=== PATIENT | male | born 1985 | race African-American/Black ===

== ENCOUNTER 2020-01-12 18:11 | Emergency (ER) | payer SELFPAY ==
[2020-01-12] MEDS ORDERED: IPRATROPIUM/ALBUTEROL 0.5-2.5 MG/3 ML AMPUL NEB ONE (18:51)
--- NOTE | 2020-01-12 18:53 | ER Document Report ---
ED Respiratory Problem - General Chief Complaint: Shortness Of Breath Stated Complaint: SHORTNESS OF BREATH Time Seen by Provider: 01/12/20 18:28 Primary Care Provider: [facility] [Provider Group] - Follow up as needed [facility] [Provider Group] - Follow up as needed Mode of Arrival: Ambulatory Information source: Patient Notes: Patient reports having an episode of shortness of breath after smoking marijuana blunt. Patient states that he has had increased stress as his brother yesterday. Patient denies any cough or cold symptoms. Patient denies any chest pain. Patient denies any fever. Patient does report a previous history of asthma. TRAVEL OUTSIDE OF THE [place] IN LAST 30 DAYS: No - HPI Patient complains to provider of: Short of breath. No: Chest pain, Cough Onset: This evening Quality of pain: No pain Context: Smoker Associated symptoms: Anxiety, Short of breath. denies: Congestion, Cough, Fever, Wheezing Similar symptoms previously: No Recently seen / treated by doctor: No Past Medical History - General Information source: Patient - Social History Smoking Status: Current Every Day Smoker Frequency of alcohol use: Occasional Drug Abuse: Marijuana Family History: Reviewed & Not Pertinent Pulmonary Medical History: Reports: Hx Asthma - as a child Surgical Hx: Negative - Immunizations Hx Diphtheria, Pertussis, Tetanus Vaccination: Yes Review of Systems - Review of Systems Constitutional: No symptoms reported. denies: Fever EENT: No symptoms reported Cardiovascular: No symptoms reported. denies: Chest pain Respiratory: Short of breath. denies: Cough Gastrointestinal: No symptoms reported. denies: Nausea, Vomiting Genitourinary: No symptoms reported Male Genitourinary: No symptoms reported Musculoskeletal: No symptoms reported. denies: Back pain, Leg swelling Skin: No symptoms reported Hematologic/Lymphatic: No symptoms reported Neurological/Psychological: Anxiety. denies: Headaches Physical Exam - Vital signs Vitals: Temp Pulse Resp BP Pulse Ox 98.2 F 107 H 18 160/98 H 98 01/12/20 18:17 01/12/20 18:17 01/12/20 18:17 01/12/20 18:17 01/12/20 18:17 - General General appearance: Appears well, Alert, Anxious In distress: None - HEENT Head: Normocephalic, Atraumatic Eyes: Normal Conjunctiva: Normal Nasal: Normal Mouth/Lips: Normal Neck: Normal, Supple. No: Lymphadenopathy - Respiratory Respiratory status: No respiratory distress Chest status: Nontender Breath sounds: Normal Chest palpation: Normal - Cardiovascular Rhythm: Regular Heart sounds: S1 appreciated, S2 appreciated Murmur: No - Abdominal Inspection: Normal Distension: No distension Bowel sounds: Normal Tenderness: Nontender Organomegaly: No organomegaly - Back Back: Normal, Nontender. No: CVA tenderness - Extremities General upper extremity: Normal inspection, Normal ROM General lower extremity: Normal inspection, Normal ROM - Neurological Neuro grossly intact: Yes Cognition: Normal Alexander Coma Scale Eye Opening: Spontaneous Letha Coma Scale Verbal: Oriented Letha Coma Scale Motor: Obeys Commands Alexander Coma Scale Total: 15 - Psychological Associated symptoms: Tearful - almost, Other - Emotional when talking about family member who recently - Skin Skin Temperature: Warm Skin Moisture: Dry Skin Color: Normal Course - Re-evaluation Re-evalutation: 01/12/20 19:47 Patient reports episode of shortness of breath after taking smoking a marijuana blunt. Patient states that he started to have some shortness of breath after smoking. Patient does report increased stress due to a recent in the family yesterday. Patient without any chest discomfort. Patient denies cough or cold symptoms. Presentation of this of breath in an otherwise well appearing patient. Low clinical suspicion for ACS given clinical history, exam, EKG without ST elevations or depressions. CXR without evidence of pneumothorax or pneumonia. No widened mediastinum. Consulted with Dr. Carrington regarding patient presentation and diagnostic evaluation. Agrees with discharge plan of care at this time. 01/12/20 20:15 Patient's heart rate on reexamination was 80, when provider started talking to patient, patient heart rate did increase to 100 which was recorded, although patient had no tachycardia prior to provider speaking to him. - Vital Signs Vital signs: Temp Pulse Resp BP Pulse Ox 97.6 F 106 H 18 133/88 H 98 01/12/20 20:15 01/12/20 20:15 01/12/20 20:15 01/12/20 20:15 01/12/20 20:15 - Diagnostic Test Radiology reviewed: Reports reviewed - EKG Interpretation by Me EKG shows normal: Sinus rhythm Rate: Normal Additional EKG results interpreted by me: 01/12/20 19:[address] elevation, no T wave inversion, QTC 450 Discharge - Discharge Clinical Impression: dyspnea episode, Grieving, Anxiety Condition: Stable Disposition: HOME, SELF-CARE Instructions: Anxiety ([facility]), Dyspnea, Nonspecific ([facility]) Additional Instructions: Return immediately for any new or worsening symptoms Followup with your primary care provider, call tomorrow to make a followup appointment Avoid use of marijuana Prescriptions: Hydroxyzine Pamoate [Vistaril 50 mg Capsule] 50 mg PO TID PRN #12 capsule PRN Reason: Referrals: [facility] [Provider Group] - Follow up as needed [facility] [Provider Group] - Follow up as needed
--- NOTE | 2020-01-12 19:24 | RADIOLOGY REPORT (SQ) ---
EXAM DESCRIPTION: CHEST SINGLE VIEW IMAGES COMPLETED DATE/TIME: 01/12/2020 7:14 pm REASON FOR STUDY: sob COMPARISON: None. EXAM PARAMETERS: NUMBER OF VIEWS: One view. TECHNIQUE: Single frontal radiographic view of the chest acquired. RADIATION DOSE: NA LIMITATIONS: None. FINDINGS: LUNGS AND PLEURA: No opacities, masses or pneumothorax. No pleural effusion. MEDIASTINUM AND HILAR STRUCTURES: No masses. Contour normal. HEART AND VASCULAR STRUCTURES: Heart normal in size. Normal vasculature. BONES: No acute findings. HARDWARE: None in the chest. OTHER: No other significant finding. IMPRESSION: NO ACUTE RADIOGRAPHIC FINDING IN THE CHEST. TECHNICAL DOCUMENTATION: JOB ID: [id number] 2010 [employer]- All Rights Reserved Reading location - IP/workstation name: [email or web address]
[2020-01-12 21:04] VITALS: BP 136/82
--- NOTE | 2020-01-12 21:41 | EKG REPORT ---
SEVERITY:- BORDERLINE ECG - SINUS RHYTHM PROBABLE LEFT ATRIAL ABNORMALITY BORDERLINE LEFT AXIS DEVIATION : Confirmed by: Michael Mahmood MD 12-Jan-2020 21:41:19
== END 2020-01-12 21:05 | disposition home or self-care (01) ==
LOC: ER 18:11
DX: F41.9 Anxiety disorder, unspecified (principal); F43.21 Adjustment disorder with depressed mood; Z63.4 Disappearance and death of family member; R06.02 Shortness of breath; F12.10 Cannabis abuse, uncomplicated; F17.200 Nicotine dependence, unspecified, uncomplicated
CPT/HCPCS: 93005; 94640; 99285; 71045; 93010; J7620

== ENCOUNTER 2020-01-13 12:19 | Emergency (ER) | payer SELFPAY ==
[2020-01-13 12:33] VITALS: BP 144/96
--- NOTE | 2020-01-13 12:35 | ER Document Report ---
HPI - HPI Patient complains to provider of: High blood pressure and anxiety grief Time Seen by Provider: 01/13/20 12:23 Onset: Other - Brother Sunday Onset/Duration: Better Quality of pain: Other - Grief Context: 34-year-old male presented to ED for stress anxiety elevated blood pressure. He states his brother on Sunday causing his blood pressure to go high. He states he was feeling very weird. He came in yesterday because he was feeling very weird after the use of marijuana which triggered his breathing problem and his blood pressure go higher. He states he went to work today and they told him he cannot use personal time of vacation time or sick time if he had not said something ahead of time. Associated Symptoms: Other - Brief elevated blood pressure Exacerbated by: Denies Relieved by: Denies Similar symptoms previously: No Recently seen / treated by doctor: No - ROS ROS below otherwise negative: Yes - CONSTITUTIONAL Constitutional: DENIES: Fever, Chills - EENT EENT: DENIES: Sore Throat, Ear Pain, Nasal Drainage-Clear, Nasal Drainage- Purulent, Congestion, Eye problems - NEURO Neurology: DENIES: Headache, Weakness, Vision blurred, Dizzinesss / Vertigo - CARDIOVASCULAR Cardiovascular: DENIES: Chest pain - RESPIRATORY Respiratory: DENIES: Trouble Breathing, Coughing - GASTROINTESTINAL Gastrointestinal: DENIES: Abdominal Pain, Nausea, Patient vomiting, Diarrhea, Constipation, Black / Bloody Stools - URINARY Urinary: DENIES: Dysuria, Urgency, Frequency - REPRODUCTIVE Reproductive: DENIES: :, Postmenopausal, Abnormal bleeding / discharge - MUSCULOSKELETAL Musculoskeletal: DENIES: Extremity pain, Back Pain, Neck Pain, Swelling - DERM Skin Color: Normal Skin Problems: None Past Medical History - General Information source: Patient - Social History Smoking Status: Former Smoker Frequency of alcohol use: None Drug Abuse: Marijuana - He is quit Lives with: Family Family History: Reviewed & Not Pertinent Patient has suicidal ideation: No Patient has homicidal ideation: No - Past Medical History Cardiac Medical History: Reports: Hx Hypertension Pulmonary Medical History: Reports: Hx Asthma - as a child EENT Medical History: Reports: None Neurological Medical History: Reports: None Endocrine Medical History: Reports: None Renal/ Medical History: Reports: None Malignancy Medical History: Reports None GI Medical History: Reports: None Musculoskeletal Medical History: Reports None Skin Medical History: Reports None Psychiatric Medical History: Reports: Other - Grief his brother on January 09 Traumatic Medical History: Reports: None Infectious Medical History: Reports: None Surgical Hx: Negative Past Surgical History: Reports: None - Immunizations Hx Diphtheria, Pertussis, Tetanus Vaccination: Yes Vertical Provider Document - CONSTITUTIONAL Agree With Documented VS: Yes Exam Limitations: No Limitations General Appearance: WD/WN, No Apparent Distress - INFECTION CONTROL TRAVEL OUTSIDE OF THE [place] IN LAST 30 DAYS: No - HEENT HEENT: Atraumatic, Normal ENT Exam, Normocephalic, PERRLA - NECK Neck: Normal Inspection, Supple, Thyroid Normal - RESPIRATORY Respiratory: Breath Sounds Normal, No Respiratory Distress, Chest Non-Tender - CARDIOVASCULAR Cardiovascular: Regular Rate, Regular Rhythm, No Murmur - GI/ABDOMEN Gastrointestinal: Abdomen Soft, Abdomen Non-Tender, No Organomegaly, Normal Bowel Sounds - MUSCULOSKELETAL/EXTREMETIES Musculoskeletal/Extremeties: MAEW, FROM, Non-Tender - NEURO Level of Consciousness: Awake, Alert, Appropriate Motor/Sensory: No Motor Deficit, No Sensory Deficit Deep Tendon Reflexes: 2+ - DERM Integumentary: Warm, Dry, No Rash Notes: Patient is having grief. His brother on Sunday his boss did not give him any time of he tried using a little marijuana to help with his grief and it made him short of breath which caused him to come the emergency room last night. He cannot use the marijuana due to his asthma and blood pressure. He will be given several days off to grieve. Course - Vital Signs Vital signs: Temp Pulse Resp BP Pulse Ox 98.1 F 80 18 154/99 H 100 01/13/20 12:23 01/13/20 12:23 01/13/20 12:23 01/13/20 12:01/13/20 12:23 Discharge - Discharge Clinical Impression: Anxiety, Grieving Condition: Stable Disposition: HOME, SELF-CARE Instructions: Anxiety ([facility]) Additional Instructions: Please take this time to grieve Current medications as prescribed. FOLLOW-UP CARE: If you have been referred to a physician for follow-up care, call the physicians office for an appointment as you were instructed or within the next two days. If you experience worsening or a significant change in your symptoms, notify the physician immediately or return to the Emergency Department at any ti me for re-evaluation. Forms: Elevated Blood Pressure, Smoking Cessation Education, Return to Work Referrals: [facility] [Provider Group] - Follow up as needed [facility] [Provider Group] - Follow up as needed [facility] [Provider Group] - Follow up as needed MARU ANGULO MD [ACTIVE STAFF] - Follow up as needed
== END 2020-01-13 12:41 | disposition home or self-care (01) ==
LOC: ER 12:19
DX: F41.9 Anxiety disorder, unspecified (principal); F43.21 Adjustment disorder with depressed mood; Z63.4 Disappearance and death of family member; F12.10 Cannabis abuse, uncomplicated; I10 Essential (primary) hypertension; J45.909 Unspecified asthma, uncomplicated; R06.02 Shortness of breath; Z87.891 Personal history of nicotine dependence
CPT/HCPCS: 99283

== ENCOUNTER 2020-01-16 09:09 | Emergency (ER) | payer SELFPAY ==
[2020-01-16 09:49] VITALS: BP 138/85
[2020-01-16 09:54] LABS: ABSOLUTE EOSINOPHILS # (AUTO) 0.1 10^3/uL (0.0-0.6); ABSOLUTE MONOCYTES (AUTO) 0.5 10^3/uL (0.1-1.4); EOSINOPHILS % (AUTO) 1.6 % (0-6); RED CELL DISTRIBUTION WIDTH 13.4 % (11.5-14.0); TOTAL CELLS COUNTED % (AUTO) 100 %
[2020-01-16 10:00] LABS: ABSOLUTE LYMPHOCYTES (AUTO) 1.6 10^3/uL (0.5-4.7); ABSOLUTE NEUT (AUTO) 1.6 10^3/uL (1.7-8.2); BASOPHILS % (AUTO) 0.7 % (0-2); HEMATOCRIT 49.3 % (37.9-51.0); HEMOGLOBIN 17.3 g/dL (13.5-17.0); LYMPHOCYTES % (AUTO) 42.2 % (13-45); MEAN CORPUSCULAR HEMOGLOBIN 31.3 pg (27.0-33.4); MEAN CORPUSCULAR HGB CONC 35.1 g/dL (32.0-36.0); MEAN CORPUSCULAR VOLUME 89 fl (80-97); MONOCYTES % (AUTO) 13.7 % (3-13); PLATELET COUNT 232 10^3/uL (150-450); RED BLOOD COUNT 5.54 10^6/uL (4.35-5.55); SEGMENTED NEUTROPHILS % (AUTO) 41.8 % (42-78); WHITE BLOOD COUNT 3.7 10^3/uL (4.0-10.5)
[2020-01-16 10:26] LABS: ALBUMIN 4.7 g/dL (3.5-5.0); ALKALINE PHOSPHATASE 53 U/L (38-126); ANION GAP 8 (5-19); ASPARTATE AMINO TRANSFERASE 29 U/L (17-59); BILIRUBIN,DIRECT 0.1 mg/dL (0.0-0.4); BILIRUBIN,TOTAL 0.8 mg/dL (0.2-1.3); BLOOD UREA NITROGEN 19 mg/dL (7-20); CALCIUM 9.8 mg/dL (8.4-10.2); CARBON DIOXIDE 24 mmol/L (22-30); CHLORIDE 105 mmol/L (98-107); GLUCOSE 106 mg/dL (75-110); POTASSIUM 4.5 mmol/L (3.6-5.0); TOTAL PROTEIN 7.4 g/dL (6.3-8.2)
--- NOTE | 2020-01-16 11:11 | ER Document Report ---
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 Patient states he is actually been feeling much better since he was seen here on the and the . States that the antianxiety medication he was prescribed is working quite well. States he has an appointment to see behavioral health 1 week from today however his medication is going to run out before then. States that he is worried that he may run out of that medication. Patient also states that when his boss told him he looked terrible he started becoming worried again and when he thought about the medication running out he gave became worried again as well. Of note patient's brother suddenly 1 week ago. Patient states that is what triggered his anxiety. Currently denies any shortness of breath or chest pain. Denies any suicidal ideation. TRAVEL OUTSIDE OF THE [place] IN LAST 30 DAYS: No - Related Data Allergies/Adverse Reactions: No Known Allergies Allergy (Verified 01/16/20 09:57) Past Medical History - General Information source: Patient - Social History Smoking Status: Current Every Day Smoker Chew tobacco use (# tins/day): No Frequency of alcohol use: Social Drug Abuse: Marijuana Family History: Reviewed & Not Pertinent Patient has homicidal ideation: No - Past Medical History Cardiac Medical History: Reports: Hx Hypertension Pulmonary Medical History: Reports: Hx Asthma - as a child - Immunizations Hx Diphtheria, Pertussis, Tetanus Vaccination: Yes Review of Systems - Review of Systems Constitutional: No symptoms reported Cardiovascular: No symptoms reported Neurological/Psychological: See HPI, Anxiety -: Yes All other systems reviewed and negative Physical Exam - Vital signs Vitals: Temp 98.2 F 01/16/20 09:12 Interpretation: Hypertensive - Notes Notes: GENERAL: Alert, interacts well. No acute distress. HEAD: Normocephalic, atraumatic EYES: Pupils equal, round and reactive to light, extraocular movements intact. ENT: Oral mucosa moist, tongue midline. NECK: Full range of motion, supple, trachea midline. LUNGS: Clear to auscultation bilaterally, no wheezes, rales or rhonchi, no respiratory distress. HEART: Regular rate and rhythm, no murmurs, gallops, rubs. ABDOMEN: Soft, nontender, nondistended, bowel sounds present in all 4 quadrants. EXTREMITIES: Moves all 4 extremities spontaneously, no edema, radial and dorsalis pedis pulses 2/4 bilaterally. No cyanosis. NEUROLOGICAL: Alert and oriented x3, normal speech. PSYCH: Normal mood, normal affect. SKIN: Warm, Dry, normal turgor, no rashes or lesions noted. Course - Re-evaluation Re-evalutation: 01/16/20 11:10 CBC has slightly low white blood cell count of 3.7, slightly high hemoglobin 17.3, nothing that needs to be treated acutely, CMP unremarkable. Patient's anxiety medications will be refilled, no further work-up is needed, patient was counseled on monitoring for high blood pressure and checking it every few days and writing it down. At present patient blood pressure does not need acute treatment. Discharged home. - Vital Signs Vital signs: Temp Pulse Resp BP Pulse Ox 98.7 F 86 16 138/85 H 97 01/16/20 09:32 01/16/20 09:32 01/16/20 09:32 01/16/20 09:32 01/16/20 09:32 - Laboratory Result Diagrams: 01/16/20 09:38 01/16/20 09:38 Laboratory results interpreted by me: 01/16/20 09:38 WBC 3.7 L Hgb 17.3 H [place] % (Auto) 13.7 H Absolute Neuts (auto) 1.6 L Seg Neutrophils % 41.8 L Discharge - Discharge Clinical Impression: Grieving, Anxiety Condition: Stable Disposition: HOME, SELF-CARE Additional Instructions: Please continue to follow-up with behavioral health as scheduled as an outpatient. Today your blood pressure was mildly elevated, it is actually what we call prehypertensive not actually hypertensive. This means that you need to continue to monitor it. I would suggest having your blood pressure checked either every day or 2-3 times a week and simply writing it down. If it continues to be greater than 130/80 please consider seeing a primary care physician to discuss your blood pressure. Typically blood pressure does not need to be treated unless it is greater than 140/90 on a daily basis however it is good to start the conversation early. Prescriptions: Hydroxyzine Pamoate [Vistaril 50 mg Capsule] 50 mg PO TIDP PRN #60 capsule PRN Reason: Forms: Return to Work
== END 2020-01-16 11:19 | disposition home or self-care (01) ==
LOC: ER 09:09
DX: F43.21 Adjustment disorder with depressed mood (principal); F41.9 Anxiety disorder, unspecified; F17.200 Nicotine dependence, unspecified, uncomplicated; I10 Essential (primary) hypertension; J45.909 Unspecified asthma, uncomplicated
CPT/HCPCS: 36415; 80053; 85025; 99283

== ENCOUNTER 2020-02-20 09:57 | Emergency (ER) | payer SELFPAY ==
--- NOTE | 2020-02-20 12:40 | RADIOLOGY REPORT (SQ) ---
EXAM DESCRIPTION: CHEST SINGLE VIEW IMAGES COMPLETED DATE/TIME: 02/20/2020 12:30 pm REASON FOR STUDY: cough, PUI Covid COMPARISON: 01/12/2020 EXAM PARAMETERS: NUMBER OF VIEWS: One view. TECHNIQUE: Single frontal radiographic view of the chest acquired. RADIATION DOSE: NA LIMITATIONS: None. FINDINGS: LUNGS AND PLEURA: No opacities, masses or pneumothorax. No pleural effusion. MEDIASTINUM AND HILAR STRUCTURES: No masses. Contour normal. HEART AND VASCULAR STRUCTURES: Heart normal in size. Normal vasculature. BONES: No acute findings. HARDWARE: None in the chest. OTHER: No other significant finding. IMPRESSION: NO ACUTE RADIOGRAPHIC FINDING IN THE CHEST. TECHNICAL DOCUMENTATION: JOB ID: [id number] 2010 [employer]- All Rights Reserved Reading location - IP/workstation name: [email or web address]
--- NOTE | 2020-02-20 13:11 | ER Document Report ---
ED General - General Chief Complaint: Sinus Congestion Stated Complaint: NASAL CONGESTION/LOSS OF SMELL Time Seen by Provider: 02/20/20 11:47 TRAVEL OUTSIDE OF THE [place] IN LAST 30 DAYS: No - HPI Notes: Chief complaint: URI symptoms and impaired sense of smell HPI: Previously healthy 34-year-old male taking no regular medications with no prior hospitalizations or serious illnesses reports a 2-day history of nasal congestion and is now noticed a profound loss of his sense of smell. He says he still has intact taste. He denies fever. He denies cough or shortness of breath. He denies nausea vomiting or diarrhea. He denies skin rash. He has no known direct exposure to COVID-19 but says he has been working in public and not consistently wearing a mask. He denies any recent travel. Patient is not diabetic or hypertensive. He is a cigarette smoker. - Related Data Allergies/Adverse Reactions: No Known Allergies Allergy (Verified 01/16/20 09:57) Past Medical History - General Information source: Patient - Social History Smoking Status: Current Every Day Smoker Frequency of alcohol use: Past Drug Abuse: Other - Recently stop smoking marijuana Lives with: Family Family History: Reviewed & Not Pertinent - Past Medical History Cardiac Medical History: Denies: Hx Hypertension Pulmonary Medical History: Reports: Hx Asthma - as a child Endocrine Medical History: Denies: Hx Diabetes Mellitus Type 1, Hx Diabetes Mellitus Type 2 - Immunizations Hx Diphtheria, Pertussis, Tetanus Vaccination: Yes Review of Systems - Review of Systems Notes: Constitutional: Negative for fever. HENT: As per HPI Eyes: Negative for visual changes. Cardiovascular: Negative for chest pain. Respiratory: Negative for shortness of breath. Gastrointestinal: Negative for abdominal pain, vomiting or diarrhea. Genitourinary: Negative for dysuria. Musculoskeletal: Negative for back pain. Skin: Negative for rash. Neurological: Negative for headaches, weakness or numbness. 10 point ROS negative except as marked above and in HPI. Physical Exam - Vital signs Vitals: Temp 97.7 F 02/20/20 10:11 - Notes Notes: Remote Exam Using Telemedicine System for mitigation of COVID exposure risk GENERAL: Well-developed well-nourished appearing in no acute distress. SKIN: no rashes. HEAD: Normocephalic atraumatic. EYES: PERRL. EOMI. Conjunctivae and sclerae clear. NOSE: CLEAR. MOUTH: Moist mucosa. Good dentition. No stridor or edema. No drooling. NECK: Full ROM. No visible masses or thyromegaly. No JVD. BACK: Symmetrical. CHEST: Respirations unlabored. Expands symmetrical. ABDOMEN: Non-distended. GENITALIA: Deferred. EXTREMITIES: No edema. NEUROLOGICAL: GCS 15. Alert and oriented x3. Normal gait. Fluent speech. Cranial nerves II through XII intact. Motor and cerebellar normal. PSYCHIATRIC: Appropriate affect. Course - Re-evaluation Re-evalutation: 02/20/20 13:11 COVID nasal swab has been submitted for the patient with results pending. I explained to the patient he may have a simple URI although I cannot rule out COVID at this point. We recommend supportive care measures at home with immediate return here for worsening. Otherwise he will hear from someone from the hospital by phone within 72 hours to report his COVID results and should remain on isolation until he knows these results. Understanding - Vital Signs Vital signs: Temp Pulse Resp BP Pulse Ox 97.7 F 73 14 136/91 H 97 02/20/20 11:00 02/20/20 11:00 02/20/20 11:00 02/20/20 11:00 02/20/20 11:00 - Diagnostic Test Radiology reviewed: Reports reviewed - Normal portable chest x-ray per radiologist Discharge - Discharge Clinical Impression: Patient under investigation for COVID Disposition: HOME, SELF-CARE Additional Instructions: Tylenol and [id number] cold medications as needed. Increase oral fluids. Return here as needed for new or worsening symptoms: Difficulty breathing Pain that is worsening or unimproved Uncontrolled vomiting High fever or shaking chills Overall worsening Remain on isolation at home until you receive results of your COVID testing from the hospital.
[2020-02-20 13:44] VITALS: BP 130/76
== END 2020-02-20 13:43 | disposition home or self-care (01) ==
LOC: ER 09:57
DX: U07.1 COVID-19 (principal); F17.210 Nicotine dependence, cigarettes, uncomplicated
CPT/HCPCS: 99283; 87635; 71045; C9803